=== PATIENT | male | born 1945 | race Caucasian/White ===

== ENCOUNTER 2018-08-21 07:41 | Emergency (ER) | payer MEDICARE ==
[2018-08-21] MEDS ORDERED: Adacel (T-DAP) 0.5 ML SYRINGE ONE (07:59)
== END 2018-08-21 08:16 | disposition home or self-care (01) ==
LOC: SCSER 07:41
DX: T63.001A Toxic effect of unspecified snake venom, accidental (unintentional), initial encounter (principal); E03.9 Hypothyroidism, unspecified; I10 Essential (primary) hypertension; F17.220 Nicotine dependence, chewing tobacco, uncomplicated
CPT/HCPCS: 90471; 90715